=== PATIENT | male | born 1970 | race Caucasian/White ===

== ENCOUNTER 2022-07-07 21:30 | Emergency (ER) | payer MEDICAID ==
[~2022-07-07] VITALS: Ht 180.3 cm; Wt 99.8 kg
[~2022-07-07 21:30] MED LIST: BACTRIM DS 8001 TA1 PO; CIPRO500 MG PO; LISINOPRIL20 MG PO; METFORMIN1000 MG PO; VICODIN 5/500 505 MG PO
[2022-07-07 21:50] LABS: BASO % 0.4 % (0.0-1.0); EOS # 0.2 10*3/uL (0.0-0.4); EOS % 1.6 % (1.0-4.0); HEMATOCRIT 35.8 % (42.0-52.0); LYMPH # 1.9 10*3/uL (1.3-4.4); LYMPH % 17.1 % (27.0-41.0); MEAN CELL VOLUME 91.1 fl (80.0-94.0); MEAN CORPUSCULAR HGB 31.3 pg (27.0-31.0); MEAN CORPUSCULAR HGB CONC 34.4 g/dl (33.0-37.0); MEAN PLATELET VOLUME 11.6 fl (9.6-12.3); MONO # 0.9 10*3/uL (0.1-1.0); MONO % 7.8 % (3.0-9.0); NEUT # 7.9 10*3/uL (2.3-7.9); NEUT % 72.8 % (47.0-73.0); PLATELET COUNT AUTOMATED 172 10*3/uL (130-400); RED BLOOD COUNT 3.93 10*6/uL (4.50-5.90); RED CELL DISTRI WIDTH 12.8 % (0-14.5); WHITE BLOOD COUNT 10.9 10*3/uL (4.8-10.8)
[2022-07-07 22:05] LABS: ALKALINE PHOSPHATASE 67 U/L (45-117); BUN 19 mg/dl (7-24); CHLORIDE 109 mmol/L (98-107); CREATININE 1.02 mg/dL (0.70-1.30); POTASSIUM 3.7 mmol/L (3.5-5.1); SGOT/AST 16 IU/L (3-35); SGPT/ALT 30 U/L (12-78); SODIUM 141 mmol/L (136-145); TOTAL PROTEIN 6.9 gm/dL (6.4-8.2)
[2022-07-07] MEDS ORDERED: PREDNISONE20 M1 PO (22:45)
[2022-07-07] MEDS ORDERED: AMOX-CLAV 875-1 EACH PO (22:45)
[2022-07-07] MEDS ORDERED: MECLIZINE HCL25 M2 PO (22:46)
== END 2022-07-07 22:54 | disposition home or self-care (01) ==
LOC: ED 21:30
PROVIDERS: Emergency Medicine
DX: R42 Dizziness and giddiness (principal); J32.0 Chronic maxillary sinusitis